=== PATIENT | male | born 1955 | race Caucasian/White ===

== ENCOUNTER → 2019-12-28 | Day surgery (SDC) | payer OTHER ==
[~2019-12-28] MED LIST: IV RINGERS,LACTATED 1000ML 1,000 ML IV SCH; LIDOCAINE 2% PF 5 ML VIAL. ONE; PROPOFOL 40 ML IV ONE
--- NOTE | 2019-12-28 08:13 | CONS ---
DATE OF CONSULTATION: 12/28/2019 REFERRING PHYSICIAN: Luis Rivas MD REASON FOR CONSULTATION: Colorectal screening. HISTORY OF PRESENT ILLNESS: A 64-year-old male whose past medical history is noncontributory, seen for screening colon exam. Bowel habits are regular without diarrhea or constipation. There has been no melena and/or hematochezia. Weight and appetite are stable. He has not undergone previous studies and is without additional complaints. PAST MEDICAL HISTORY: Noncontributory. ALLERGIES: None. MEDICATIONS: None. PAST SURGICAL HISTORY: Significant for Dupuytren's release of one hand. 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 Does not smoke. He is a social drinker. FAMILY HISTORY: Noncontributory. REVIEW OF SYSTEMS: Per records. PHYSICAL EXAMINATION: GENERAL: This is a well-nourished, well-developed male. VITAL SIGNS: Temperature is 98.1, pulse 109, respiratory rate is 18. LUNGS: Clear. CARDIOVASCULAR: S1, S2 without S3, S4 or appreciable murmur. ABDOMEN: With a soft abdomen, normal bowel sounds without appreciable hepatosplenomegaly. EXTREMITIES: Reveals no cyanosis, clubbing or edema. IMPRESSION AND PLAN: Colorectal screening. Risks and benefits of procedure including risk of hemorrhage and perforation discussed and the patient is willing to proceed at this time. I would like to thank Dr. Rivas for allowing us to consult and participate in the patient's care. ANNETTE BOURNE MD DR: GUILLAUME/erik JOB#: [id number] / [id number] LUIS Bennett MD
[2019-12-28 08:34] VITALS: BP 110/74
== END ==
LOC: ENDOS 06:28
PROVIDERS: ATTEND Internal Medicine Gastroenterology
DX: Z12.11 Encounter for screening for malignant neoplasm of colon (principal); K64.0 First degree hemorrhoids; K63.89 Other specified diseases of intestine; E66.3 Overweight; Z68.27 Body mass index [BMI] 27.0-27.9, adult; Z87.39 Personal history of other diseases of the musculoskeletal system and connective tissue; Z98.890 Other specified postprocedural states
CPT/HCPCS: 45378; J2001; J2704